=== PATIENT | female | born 1965 | race American Indian/Alaskan Native ===

== ENCOUNTER 2017-08-04 09:50 | Outpatient (CLI) | payer OTHER ==
--- NOTE | 2017-08-04 11:29 | Mammography Report ---
Screening mammogram: Routine views are obtained. There is an intermediate fibroglandular pattern which is symmetrically and diffusely distributed. In the central left breast there is a circumscribed relatively low density nodule. In the anterior right breast is a somewhat irregular area of irregular shaped density that's not clearly identified in the lateral projection. The breast pattern is not otherwise remarkable. CAD used. Impression: Bilateral asymmetries. Recommendation: This patient's prior exam is being requested for comparison before final recommendation. BI-RADS CATEGORY: 0 = Needs additional imaging evaluation ACR BI-RADS MAMMOGRAPHIC CODES: 0 = Needs additional imaging evaluation; 1 = Negative; 2 = Benign; 3 = Probably benign; 4 = Suspicious; 5 = Malignant; 6 = Known biopsy-proven malignancy COMMENT: 1. Dense breast tissue, i.e., adenosis, fibrocystic changes, etc., may obscure an underlying neoplasm. 2. Approximately 10% of cancers are not detected with mammography. 3. A negative mammography report should not delay biopsy if a clinically suspicious mass is present.
== END 2017-08-04 09:51 | disposition home or self-care (01) ==
LOC: MAMMO 09:50
PROVIDERS: ATTEND Nurse Practitioner Gerontology
DX: Z12.31 Encounter for screening mammogram for malignant neoplasm of breast (principal)
CPT/HCPCS: 77067

== ENCOUNTER 2017-09-15 09:28 | Outpatient (CLI) | payer OTHER ==
--- NOTE | 2017-09-15 09:58 | Mammography Report ---
Right mammogram: Call back for right asymmetry. Additional lateral whole breast and spot compression imaging is performed. The asymmetry is no longer identified and the findings are unchanged compared to exams dated back to 2015. Impression: Stable exam. Recommendation: Annual mammogram followup. BI-RADS CATEGORY: 1 = Negative ACR BI-RADS MAMMOGRAPHIC CODES: 0 = Needs additional imaging evaluation; 1 = Negative; 2 = Benign; 3 = Probably benign; 4 = Suspicious; 5 = Malignant; 6 = Known biopsy-proven malignancy COMMENT: 1. Dense breast tissue, i.e., adenosis, fibrocystic changes, etc., may obscure an underlying neoplasm. 2. Approximately 10% of cancers are not detected with mammography. 3. A negative mammography report should not delay biopsy if a clinically suspicious mass is present.
== END 2017-09-15 09:29 | disposition home or self-care (01) ==
LOC: MAMMO 09:28
PROVIDERS: ATTEND Physician Assistant
DX: R92.2 Inconclusive mammogram (principal)